=== PATIENT | female | born 1980 | race Two or more races ===

== ENCOUNTER 2022-05-25 21:22 | Emergency (ER) | payer MEDICAID, SELFPAY ==
[2022-05-25 21:23] VITALS: BP 120/71; BP 132/86; PULSE 100; PULSE 85; RESP 18; TEMP 36.4; O2SAT 100; BMI 29.2
[2022-05-25 22:30] LABS: MANUAL DIFF FLAG NO
[2022-05-25 22:33] LABS: Appearance Urine Cloudy; Color Urine Dark Yellow; Glucose Urine UA Negative (Negative); Leukocyte Esterase Urine Negative (Negative); Nitrite Urine Negative (Negative); PH 8.5 (5.0-9.0); Specific Gravity - Urine >= 1.030 (1.005-1.025); UMIC TRIGGER UACC YES; Urine Blood Negative (Negative); Urine Ketones Trace mg/dL (Negative); Urine Protein 30 (1+) mg/dL (Neg-Trace)
[2022-05-25 22:35] LABS: Bacteria Urine 3+ (None Seen); Hyaline Casts Urine 0-2 /LPF (0-2); WBC Urine 0-5 /HPF (0-5)
[2022-05-25 22:36] LABS: Basophils Absolute Auto 0.1 X10*3/uL (0.0-0.2); Basophils Percent Auto 0.7 % (0-2); Eosinophils Absolute Auto 0.2 X10*3/uL (0.0-0.4); Eosinophils Percent Auto 1.5 % (0-4); Hematocrit 35.1 % (37.0-47.0); Hemoglobin 11.4 g/dl (12.0-16.0); Imm Gran Abs Auto 0.04 X10*3/uL (0.00-0.03); Imm Gran Pct Auto 0.4 % (0.0-0.4); Lymphocytes Absolute Auto 2.7 X10*3/uL (1.2-4.9); Lymphocytes Percent Auto 25.7 % (20-40); Mean Corpuscular HGB Conc 32.5 g/dl (31.0-35.0); Mean Corpuscular Hemoglobin 28.9 pg (27.0-33.0); Mean Corpuscular Volume 89.1 fL (80.0-98.0); Mean Platelet Volume 11.5 fL (9.4-12.3); Monocytes Absolute Auto 0.7 X10*3/uL (0.1-1.2); Neutrophils Absolute Auto 6.8 x10*3/uL (2.0-8.3); Neutrophils Percent Auto 64.7 % (45-73); Platelet Count 283 X10*3/uL (160-400); Red Blood Count 3.94 X10*6/uL (4.20-5.50); Red Cell Distribution Width 14.8 % (11.0-16.0); White Blood Count 10.5 X10*3/uL (4.8-10.8)
[2022-05-25 22:39] VITALS: BP 148/78; PULSE 86; RESP 20; TEMP 36.6; O2SAT 97
[2022-05-25 22:52] LABS: Anion Gap 12 (12-20); Blood Urea Nitrogen 8 mg/dL (9-16); Carbon Dioxide 27 mmol/L (22-29); Chloride 105 mmol/L (96-108); Creatinine Clr Calc Pharmacy 85.3; Estimated Glomerular Filt Rate > 60; Glucose Random 56 mg/dL (60-115); Potassium 3.8 mmol/L (3.3-5.1); Sodium 140 mmol/L (135-145)
--- NOTE | 2022-05-25 23:31 | ED_ITS ---
HPI - General Adult General Chief complaint: General Medical Stated complaint: Back Pain Time Seen by Provider: 05/25/22 22:50 Source: patient Mode of arrival: ambulatory Limitations: no limitations History of Present Illness HPI narrative: 42-year-old female status post lumbar spine surgery for herniated disc done in [place] about 2 months ago, patient flew from [place] to [place] 2 days ago started to have lower back pain radiating down to her right leg, no urinary or stool incontinence, no fever or chills. Patient ran out of her pain medication. Related Data Allergies Allergy/AdvReac Type Severity Reaction Status Date / Time caffeine Allergy Unknown HEADACHE Verified 05/25/22 21:29 [From EXCEDRIN ASPIRIN FREE] WORSENS Review of Systems Review of Systems: All other systems are reviewed and are negative Constitutional: Reports as per HPI and Reports no additional constitutional complaints Eyes: Reports as per HPI and Reports no additional eye complaints Reports system reviewed and no additional complaints, except as documented Cardiovascular: Reports as per HPI and Reports no additional cardiovascular complaints Respiratory: Reports as per HPI and Reports no additional respiratory complaints Gastrointestinal: Reports as per HPI and Reports no additional gastrointestinal complaints Genitourinary: Reports no additional female genitourinary complaints Musculoskeletal: Reports no additional musculoskeletal complaints Skin/Breast: Reports system reviewed and no additional complaints, except as docu Psychiatric: Reports no additional psychiatric complaints Endocrine: Reports no additional endocrine complaints Hematologic/Lymphatic: Reports no additional hematologic/lymphatic complaints Allergic/Immunologic: Reports no additional allergic/immunologic complaints Reports system reviewed and no additional complaints, except as documented and Reports Abnormal speech present [facility] Social History Social History Alcohol intake: never Smoked in Last 30 Days: Yes Use of substances other than those prescribed or required for medical reasons: No Advance Directives: No Advance Directives Information Provided: No Physical Exam ED Vital Signs: Vital Signs - 24 hr 05/25/22 21:23 05/25/22 22:39 Temperature 97.5 F 97.9 F Pulse Rate 85 86 Respiratory Rate 18 20 Blood Pressure 120/71 148/78 H Pulse Oximetry 100 97 Oxygen Delivery Method Room Air Room Air BMI result Body Mass Index 29.2 Vital signs have been reviewed as appeared to be correct. Blood pressure normal. Heart rate normal. Respiration rate normal. Temperature normal. Oxygen saturation normal. Appearance: Alert. Oriented X3. No acute distress. Head: Normal external exam. Normocephalic. Atraumatic. No Zelaya signs noted. No raccoon eyes noted Eyes: PERRLA. EOMI. Conjunctiva and sclera normal. Eyelids normal. ENT: TM's Normal. Pharynx normal. Uvula midline. Moist mucous membranes. No trismus noted. No drooling noted. No muffled voice noted. Neck: Normal inspection. Neck supple. FROM. No adenopathy. Thyroid Normal. No meningeal signs. No neck mass noted. CVS: Normal heart rate and rhythm. Heart sound normal. No murmurs noted. Pulses normal throughout. Respiratory: No respiratory distress. Painless inspiration. Breath sounds normal. No wheezes/rales/rhonchi noted. Chest nontender. No accessory muscle usage noted or decreased air movement noted. Abdomen: Soft and nontender. Bowel sounds normal in all 4 quadrants. No distention noted. No organomegaly noted. No visible injury noted. Back: No CVA tenderness. Full range of motion noted. Skin: Skin warm and dry. Normal skin color. Normal skin turgor. No rashes/ lesions/lacerations noted. Extremities: No lower extremity edema. Extremities exhibit normal range of motion. Extremities nontender. Neuro: Oriented X 3. Cranial nerve exam: II-XII are grossly intact No motor deficit. No sensory deficit. Reflexes normal. Course Course Course Narrative: S/p back pain after having surgery for disc herniation 2 months ago in [place], patient will go back home in 2 days, patient is concern of taking pain medication because her sister is a drug addict. Patient feels much better with Dilaudid and muscle relaxant will discharge and follow up with PCP. Medications Administered Discontinued Medications Generic Name Dose Route Start Last Admin Trade Name Freq PRN Reason Stop Dose Admin Diazepam 2 mg 05/25/22 23:30 05/26/22 00:13 Diazepam 2 Mg Tablet PO 05/25/22 23:31 2 mg ONCE ONE Administration Hydromorphone HCl 1 mg 05/25/22 23:30 05/26/22 00:13 Hydromorphone Hcl 1 Mg/Ml Syringe IVPUSH 05/25/22 23:31 1 mg ONCE ONE Administration Protocol Sodium Chloride 1,000 mls @ 999 mls/hr 05/25/22 23:29 05/26/22 00:05 Ns IV 05/26/22 00:29 999 mls/hr .Q1H1M ONE Administration Medical Decision Making Differential Diagnosis Differential Diagnoses: The differential diagnosis associated with the presentation includes (Postsurgical back pain, lumbar radiculopathy, UTI.) Lab Data [facility] Lab Attestation statement: I reviewed the patient's lab results. 05/25/22 22:21 05/25/22 22:21 Labs: Lab Results 05/25/22 05/25/22 05/25/22 Range/Units 22:20 22:21 22:21 WBC 10.5 (4.8-10.8) X10*3/uL RBC 3.94 L (4.20-5.50) X10*6/uL Hgb 11.4 L (12.0-16.0) g/dl Hct 35.1 L (37.0-47.0) % MCV 89.1 (80.0-98.0) fL MCH 28.9 (27.0-33.0) pg MCHC 32.5 (31.0-35.0) g/dl RDW 14.8 (11.0-16.0) % Plt Count 283 (160-400) X10*3/uL MPV 11.5 (9.4-12.3) fL Immature Gran % (Auto) 0.4 (0.0-0.4) % Neut % (Auto) 64.7 (45-73) % Lymph % (Auto) 25.7 (20-40) % [place] % (Auto) 7.0 (2-11) % Eos % (Auto) 1.5 (0-4) % Baso % (Auto) 0.7 (0-2) % Lymph # (Auto) 2.7 (1.2-4.9) X10*3/uL [place] # (Auto) 0.7 (0.1-1.2) X10*3/uL Eos # (Auto) 0.2 (0.0-0.4) X10*3/uL Baso # (Auto) 0.1 (0.0-0.2) X10*3/uL Abs Immat Gran (auto) 0.04 H (0.00-0.03) X10*3/uL Absolute Neuts (auto) 6.8 (2.0-8.3) x10*3/uL Absolute Nucleated RBC 0.000 (0.0-0.012) X10*3/uL Nucleated RBC % (auto) 0.0 (0.0-0.2) /100WBC Sodium 140 (135-145) mmol/L Potassium 3.8 (3.3-5.1) mmol/L Chloride 105 (96-108) mmol/L Carbon Dioxide 27 (22-29) mmol/L Anion Gap 12 (12-20) BUN 8 L (9-16) mg/dL Creatinine 0.81 (0.5-1.4) mg/dL Estim Creat Clear Calc 85.3 Estimated GFR > 60 Random Glucose 56 L* (60-115) mg/dL Calcium 9.0 (8.4-10.2) mg/dL Urine Color Dark Yellow Urine Appearance Cloudy Urine pH 8.5 (5.0-9.0) Ur Specific [place] >= 1.030 H (1.005-1.025) Urine Protein 30 (1+) H (Neg-Trace) mg/dL Urine Glucose (UA) Negative (Negative) mg/dL Urine Ketones Trace (Negative) mg/dL Urine Blood Negative (Negative) Urine Nitrite Negative (Negative) Ur Leukocyte Esterase Negative (Negative) Urine RBC 3-5 H (0-2) /HPF Urine WBC 0-5 (0-5) /HPF Ur Squamous Epith Cells 11-20 (0-2) /HPF Urine Bacteria 3+ (None Seen) Hyaline Casts 0-2 (0-2) /LPF Discharge Plan Discharge Clinical Impression: Back pain Patient Disposition: Home, Self-Care Instructions: Acute Low Back Pain (ED) Additional Instructions: Avoid strenuous exercising, no bending, no heavy lifting.
[2022-05-26] MEDS: 0.9 % Sodium Chloride 1,000 ML 999 ML IV (00:05)
[2022-05-26] MEDS: HYDROmorphone HCl 1 MG/ML SYRINGE IVPUSH (00:13)
[2022-05-26] MEDS: diazePAM 2 MG TABLET PO (00:13)
== END 2022-05-26 02:36 | disposition home or self-care (01) ==
PROVIDERS: Emergency Provider Emergency Medicine
DX: M54.50 Low back pain, unspecified (principal)
CPT/HCPCS: 36415; 80048; 81001; 85025; 96361; 96374; 99284; J1170

== ENCOUNTER 2022-05-27 14:24 | Emergency (ER) | payer MEDICAID, SELFPAY ==
--- NOTE | ~2022-05-27 | XR_ITS ---
EXAMINATION: XR LUMBOSACRAL SPINE CLINICAL INFORMATION: Pain after surgery. COMPARISON: None TECHNIQUE: Three views of the lumbosacral spine. FINDINGS: No fracture. No subluxation. Normal alignment of vertebrae. Significant disc height narrowing at L4-L5 with small vertebral endplate spurs of the vertebrae. Moderate facet joint arthrosis at this disc level and L5-S1. No spondylolysis. Sacroiliac joints are normal. XR/XR lumbar spine 2-3V IMPRESSION: 1. No acute abnormality. 2. Degenerative spondylosis of lower lumbar spine.
--- NOTE | 2022-05-27 14:30 | ED_ITS ---
HPI - Back Pain/Injury General Chief Complaint: Nausea/Vomiting/Diarrhea <RUPERT Donald - Last Filed: 05/27/22 14:41> Stated Complaint: LOW BACK PAIN PER EMS <RUPERT Donald - Last Filed: 05/27/22 14:41> Time Seen by Provider: 05/27/22 16:21 <RUPERT Donald - Last Filed: 05/27/22 14:41> Source: patient <Ilia Ceballos MD - Last Filed: 05/27/22 19:14> Mode of arrival: ambulatory <Ilia Ceballos MD - Last Filed: 05/27/22 19:14> Limitations: no limitations <Ilia Ceballos MD - Last Filed: 05/27/22 19:14> History of Present Illness HPI Narrative: Patient history of chronic back pain status post laminectomy 2 months in [place] comes here for increased pain fell yesterday patient was seen 2 days ago for pain, pain radiates to the right leg as in the past. No leg weakness no bladder or bowel incontinence no abdominal pain no urinary complaint patient vomited several times because of pain had loose bowels 2 times <Ilia Ceballos MD - Last Filed: 05/27/22 19:14> Related Data Allergies/Adverse Reactions: Allergies Allergy/AdvReac Type Severity Reaction Status Date / Time caffeine Allergy Unknown HEADACHE Verified 05/25/22 21:29 [From EXCEDRIN ASPIRIN FREE] WORSENS <RUPERT Donald - Last Filed: 05/27/22 14:41> Review of Systems Review of Systems: Yes all other systems are reviewed and are negative <Ilia Ceballos MD - Last Filed: 05/27/22 19:14> [facility] Social History Social History: Social History Alcohol intake: never Advance Directives: No Advance Directives Information Provided: No <RUPERT Donald - Last Filed: 05/27/22 14:41> Physical Exam Vital Signs: Vital Signs: Last Vital Signs Temp 97.4 F 05/27/22 14:31 Pulse 82 05/27/22 14:31 Resp 18 05/27/22 14:31 BP 134/83 05/27/22 14:31 Pulse Ox 100 05/27/22 14:31 O2 Del Method 05/27/22 14:31 BMI result Body Mass Index 29.6 <RUPERT Donald - Last Filed: 05/27/22 14:41> Vital Signs: Last Vital Signs Temp 97.4 F 05/27/22 14:31 Pulse 82 05/27/22 14:31 Resp 18 05/27/22 14:31 BP 134/83 05/27/22 14:31 Pulse Ox 100 05/27/22 14:31 O2 Del Method 05/27/22 14:31 BMI result Body Mass Index 29.6 <Ilia Ceballos MD - Last Filed: 05/27/22 19:14> Appearance: Alert. Oriented X3. No acute distress. ENT: Pharynx normal. Oral Mucosa moist Neck: Normal inspection. Neck supple. CVS: Normal heart rate and rhythm. Pulses normal. Respiratory: No respiratory distress. Equal air entry bilateral, Abdomen: Soft and nontender. Bowel sounds are present, no mass palpable, no CVA tenderness Skin: Skin warm and dry. Normal skin color. Normal skin turgor. Extremities: No lower extremity edema. No calf tenderness back: Diffuse lumbar spine tenderness more on the right side SLR positive at 70 degrees on the right leg. No motor weakness Neuro: Oriented X 3. No motor deficit. No sensory deficit.No cerebellar signs , cranial nerves II-XII intact <Ilia Ceballos MD - Last Filed: 05/27/22 19:14> Course Course Course Narrative: RME--42 yo F w/PMHx chronic back pain s/p back surgery 2 mos ago (L4/L5 sciatica surgery in [place]) presenting to ED via EMS c/o nausea, vomiting, diarrhea and back pain x few days, reports fall this AM slipping on water reports fell into wall, hit back and then sat on floor. denies head trauma or LOC. Pt was evaluated in our ED 2 days ago for similar. Also reports urinary frequency & rad iation of pain down RLE with lots of walking today with exacerbated sx. Denies incontinence or retention, fever States left her medications in [place] No appreciable midline tenderness. Right lower lumbar MSK tenderness noted. Patient ambulating with assistance, in wheelchair. Labs, UA, COVID-19/influenza/RSV, IVF and x-ray ordered <RUPERT Donald - Last Filed: 05/27/22 14:41> Medications Administered Discontinued Medications Generic Name Dose Route Start Last Admin Trade Name Alie PRN Reason Stop Dose Admin Cyclobenzaprine HCl 10 mg 05/27/22 16:46 05/27/22 16:56 Cyclobenzaprine Hcl 10 Mg Tablet PO 05/27/22 16:47 10 mg ONCE ONE Administration Dexamethasone Sodium Phosphate 10 mg 05/27/22 16:46 05/27/22 16:55 Dexamethasone Sod Phosphate 10 Mg/Ml Vial IVPUSH 05/27/22 16:47 10 mg ONCE ONE Administration Hydromorphone HCl 1 mg 05/27/22 16:46 05/27/22 16:55 Hydromorphone Hcl 1 Mg/Ml Syringe IVPUSH 05/27/22 16:47 1 mg ONCE ONE Administration Protocol Hydromorphone HCl 1 mg 05/27/22 18:29 05/27/22 18:37 Hydromorphone Hcl 2 Mg Tablet PO 05/27/22 18:30 1 mg ONCE ONE Administration Sodium Chloride 1,000 mls @ 999 mls/hr 05/27/22 14:45 05/27/22 16:59 Ns IV 05/27/22 15:45 Infused .Q1H1M HERNAN Infusion Ketorolac Tromethamine 30 mg 05/27/22 17:52 05/27/22 18:04 Ketorolac Tromethamine 30 Mg/Ml Vial IVPUSH 05/27/22 17:53 30 mg ONCE ONE Administration Lorazepam 1 mg 05/27/22 17:52 05/27/22 17:59 Lorazepam 2 Mg/Ml Vial IVPUSH 05/27/22 17:53 1 mg STAT STA Administration Ondansetron HCl 4 mg 05/27/22 16:47 05/27/22 16:55 Ondansetron Hcl 4 Mg/2 Ml Vial IVPUSH 05/27/22 16:48 4 mg ONCE ONE Administration <RUPERT Donald - Last Filed: 05/27/22 14:41> Medications Administered Discontinued Medications Generic Name Dose Route Start Last Admin Trade Name Alie PRN Reason Stop Dose Admin Cyclobenzaprine HCl 10 mg 05/27/22 16:46 05/27/22 16:56 Cyclobenzaprine Hcl 10 Mg Tablet PO 05/27/22 16:47 10 mg ONCE ONE Administration Dexamethasone Sodium Phosphate 10 mg 05/27/22 16:46 05/27/22 16:55 Dexamethasone Sod Phosphate 10 Mg/Ml Vial IVPUSH 05/27/22 16:47 10 mg ONCE ONE Administration Hydromorphone HCl 1 mg 05/27/22 16:46 05/27/22 16:55 Hydromorphone Hcl 1 Mg/Ml Syringe IVPUSH 05/27/22 16:47 1 mg ONCE ONE Administration Protocol Hydromorphone HCl 1 mg 05/27/22 18:29 05/27/22 18:37 Hydromorphone Hcl 2 Mg Tablet PO 05/27/22 18:30 1 mg ONCE ONE Administration Sodium Chloride 1,000 mls @ 999 mls/hr 05/27/22 14:45 05/27/22 16:59 Ns IV 05/27/22 15:45 Infused .Q1H1M HERNAN Infusion Ketorolac Tromethamine 30 mg 05/27/22 17:52 05/27/22 18:04 Ketorolac Tromethamine 30 Mg/Ml Vial IVPUSH 05/27/22 17:53 30 mg ONCE ONE Administration Lorazepam 1 mg 05/27/22 17:52 05/27/22 17:59 Lorazepam 2 Mg/Ml Vial IVPUSH 05/27/22 17:53 1 mg STAT STA Administration Ondansetron HCl 4 mg 05/27/22 16:47 05/27/22 16:55 Ondansetron Hcl 4 Mg/2 Ml Vial IVPUSH 05/27/22 16:48 4 mg ONCE ONE Administration <Ilia Ceballos MD - Last Filed: 05/27/22 19:14> Medical Decision Making Medical Decision Making MDM Narrative: Patient felt better after pain medications able to ambulate to the [facility] patient has a follow-up plan with surgeon tomorrow, discharge patient home x-ray negative for any acute <Ilia Ceballos MD - Last Filed: 05/27/22 19:14> Lab Data MDM Lab Attestation statement: I reviewed the patient's lab results. <Ilia Ceballos MD - Last Filed: 05/27/22 19:14> Result Diagrams: 05/27/22 14:43 05/27/22 14:43 <RUPERT Donald - Last Filed: 05/27/22 14:41> Labs: Lab Results 05/27/22 05/27/22 05/27/22 Range/Units 14:43 14:43 14:50 WBC 9.1 (4.8-10.8) X10*3/uL RBC 3.88 L (4.20-5.50) X10*6/uL Hgb 11.1 L (12.0-16.0) g/dl Hct 34.0 L (37.0-47.0) % MCV 87.6 (80.0-98.0) fL MCH 28.6 (27.0-33.0) pg MCHC 32.6 (31.0-35.0) g/dl RDW 15.2 (11.0-16.0) % Plt Count 238 (160-400) X10*3/uL MPV 11.5 (9.4-12.3) fL Immature Gran % (Auto) 0.2 (0.0-0.4) % Neut % (Auto) 69.2 (45-73) % Lymph % (Auto) 23.4 (20-40) % [place] % (Auto) 5.7 (2-11) % Eos % (Auto) 1.1 (0-4) % Baso % (Auto) 0.4 (0-2) % Lymph # (Auto) 2.1 (1.2-4.9) X10*3/uL [place] # (Auto) 0.5 (0.1-1.2) X10*3/uL Eos # (Auto) 0.1 (0.0-0.4) X10*3/uL Baso # (Auto) 0.0 (0.0-0.2) X10*3/uL Abs Immat Gran (auto) 0.02 (0.00-0.03) X10*3/uL Absolute Neuts (auto) 6.3 (2.0-8.3) x10*3/uL Absolute Nucleated RBC 0.000 (0.0-0.012) X10*3/uL Nucleated RBC % (auto) 0.0 (0.0-0.2) /100WBC Sodium 139 (135-145) mmol/L Potassium 3.9 (3.3-5.1) mmol/L Chloride 106 (96-108) mmol/L Carbon Dioxide 26 (22-29) mmol/L Anion Gap 11 L (12-20) BUN 5 L (9-16) mg/dL Creatinine 0.73 (0.5-1.4) mg/dL Estim Creat Clear Calc 95.1 Estimated GFR > 60 Random Glucose 86 (60-115) mg/dL Calcium 9.3 (8.4-10.2) mg/dL Magnesium 1.9 (1.6-2.6) mg/dL Total Bilirubin 0.7 (0.0-1.0) mg/dL Direct Bilirubin 0.2 (0.0-0.5) mg/dL AST 14 (5-31) U/L ALT 10 (0-31) U/L Alkaline Phosphatase 109 (39-117) U/L Total Protein 7.3 (6.5-8.0) g/dL Albumin 4.1 (3.5-5.0) g/dL Lipase 25 (8-78) U/L Urine Color Yellow Urine Appearance Clear Urine pH 7.5 (5.0-9.0) Ur Specific [place] <= 1.005 (1.005-1.025) Urine Protein Negative (Neg-Trace) mg/dL Urine Glucose (UA) Negative (Negative) mg/dL Urine Ketones Negative (Negative) mg/dL Urine Blood Negative (Negative) Urine Nitrite Negative (Negative) Ur Leukocyte Esterase Negative (Negative) Influenza Type A (PCR) (Negative) Influenza Type B (PCR) (Negative) RSV RNA Qual (PCR) (Negative) SARS-CoV-2 RNA (RT-PCR) (Negative) 05/27/22 Range/Units 15:56 WBC (4.8-10.8) X10*3/uL RBC (4.20-5.50) X10*6/uL Hgb (12.0-16.0) g/dl Hct (37.0-47.0) % MCV (80.0-98.0) fL MCH (27.0-33.0) pg MCHC (31.0-35.0) g/dl RDW (11.0-16.0) % Plt Count (160-400) X10*3/uL MPV (9.4-12.3) fL Immature Gran % (Auto) (0.0-0.4) % Neut % (Auto) (45-73) % Lymph % (Auto) (20-40) % [place] % (Auto) (2-11) % Eos % (Auto) (0-4) % Baso % (Auto) (0-2) % Lymph # (Auto) (1.2-4.9) X10*3/uL [place] # (Auto) (0.1-1.2) X10*3/uL Eos # (Auto) (0.0-0.4) X10*3/uL Baso # (Auto) (0.0-0.2) X10*3/uL Abs Immat Gran (auto) (0.00-0.03) X10*3/uL Absolute Neuts (auto) (2.0-8.3) x10*3/uL Absolute Nucleated RBC (0.0-0.012) X10*3/uL Nucleated RBC % (auto) (0.0-0.2) /100WBC Sodium (135-145) mmol/L Potassium (3.3-5.1) mmol/L Chloride (96-108) mmol/L Carbon Dioxide (22-29) mmol/L Anion Gap (12-20) BUN (9-16) mg/dL Creatinine (0.5-1.4) mg/dL Estim Creat Clear Calc Estimated GFR Random Glucose (60-115) mg/dL Calcium (8.4-10.2) mg/dL Magnesium (1.6-2.6) mg/dL Total Bilirubin (0.0-1.0) mg/dL Direct Bilirubin (0.0-0.5) mg/dL AST (5-31) U/L ALT (0-31) U/L Alkaline Phosphatase (39-117) U/L Total Protein (6.5-8.0) g/dL Albumin (3.5-5.0) g/dL Lipase (8-78) U/L Urine Color Urine Appearance Urine pH (5.0-9.0) Ur Specific [place] (1.005-1.025) Urine Protein (Neg-Trace) mg/dL Urine Glucose (UA) (Negative) mg/dL Urine Ketones (Negative) mg/dL Urine Blood (Negative) Urine Nitrite (Negative) Ur Leukocyte Esterase (Negative) Influenza Type A (PCR) NEGATIVE (Negative) Influenza Type B (PCR) NEGATIVE (Negative) RSV RNA Qual (PCR) NEGATIVE (Negative) SARS-CoV-2 RNA (RT-PCR) NEGATIVE (Negative) <RUPERT Donald - Last Filed: 05/27/22 14:41> Lab Results 05/27/22 05/27/22 05/27/22 Range/Units 14:43 14:43 14:50 WBC 9.1 (4.8-10.8) X10*3/uL RBC 3.88 L (4.20-5.50) X10*6/uL Hgb 11.1 L (12.0-16.0) g/dl Hct 34.0 L (37.0-47.0) % MCV 87.6 (80.0-98.0) fL MCH 28.6 (27.0-33.0) pg MCHC 32.6 (31.0-35.0) g/dl RDW 15.2 (11.0-16.0) % Plt Count 238 (160-400) X10*3/uL MPV 11.5 (9.4-12.3) fL Immature Gran % (Auto) 0.2 (0.0-0.4) % Neut % (Auto) 69.2 (45-73) % Lymph % (Auto) 23.4 (20-40) % [place] % (Auto) 5.7 (2-11) % Eos % (Auto) 1.1 (0-4) % Baso % (Auto) 0.4 (0-2) % Lymph # (Auto) 2.1 (1.2-4.9) X10*3/uL [place] # (Auto) 0.5 (0.1-1.2) X10*3/uL Eos # (Auto) 0.1 (0.0-0.4) X10*3/uL Baso # (Auto) 0.0 (0.0-0.2) X10*3/uL Abs Immat Gran (auto) 0.02 (0.00-0.03) X10*3/uL Absolute Neuts (auto) 6.3 (2.0-8.3) x10*3/uL Absolute Nucleated RBC 0.000 (0.0-0.012) X10*3/uL Nucleated RBC % (auto) 0.0 (0.0-0.2) /100WBC Sodium 139 (135-145) mmol/L Potassium 3.9 (3.3-5.1) mmol/L Chloride 106 (96-108) mmol/L Carbon Dioxide 26 (22-29) mmol/L Anion Gap 11 L (12-20) BUN 5 L (9-16) mg/dL Creatinine 0.73 (0.5-1.4) mg/dL Estim Creat Clear Calc 95.1 Estimated GFR > 60 Random Glucose 86 (60-115) mg/dL Calcium 9.3 (8.4-10.2) mg/dL Magnesium 1.9 (1.6-2.6) mg/dL Total Bilirubin 0.7 (0.0-1.0) mg/dL Direct Bilirubin 0.2 (0.0-0.5) mg/dL AST 14 (5-31) U/L ALT 10 (0-31) U/L Alkaline Phosphatase 109 (39-117) U/L Total Protein 7.3 (6.5-8.0) g/dL Albumin 4.1 (3.5-5.0) g/dL Lipase 25 (8-78) U/L Urine Color Yellow Urine Appearance Clear Urine pH 7.5 (5.0-9.0) Ur Specific [place] <= 1.005 (1.005-1.025) Urine Protein Negative (Neg-Trace) mg/dL Urine Glucose (UA) Negative (Negative) mg/dL Urine Ketones Negative (Negative) mg/dL Urine Blood Negative (Negative) Urine Nitrite Negative (Negative) Ur Leukocyte Esterase Negative (Negative) Influenza Type A (PCR) (Negative) Influenza Type B (PCR) (Negative) RSV RNA Qual (PCR) (Negative) SARS-CoV-2 RNA (RT-PCR) (Negative) 05/27/22 Range/Units 15:56 WBC (4.8-10.8) X10*3/uL RBC (4.20-5.50) X10*6/uL Hgb (12.0-16.0) g/dl Hct (37.0-47.0) % MCV (80.0-98.0) fL MCH (27.0-33.0) pg MCHC (31.0-35.0) g/dl RDW (11.0-16.0) % Plt Count (160-400) X10*3/uL MPV (9.4-12.3) fL Immature Gran % (Auto) (0.0-0.4) % Neut % (Auto) (45-73) % Lymph % (Auto) (20-40) % [place] % (Auto) (2-11) % Eos % (Auto) (0-4) % Baso % (Auto) (0-2) % Lymph # (Auto) (1.2-4.9) X10*3/uL [place] # (Auto) (0.1-1.2) X10*3/uL Eos # (Auto) (0.0-0.4) X10*3/uL Baso # (Auto) (0.0-0.2) X10*3/uL Abs Immat Gran (auto) (0.00-0.03) X10*3/uL Absolute Neuts (auto) (2.0-8.3) x10*3/uL Absolute Nucleated RBC (0.0-0.012) X10*3/uL Nucleated RBC % (auto) (0.0-0.2) /100WBC Sodium (135-145) mmol/L Potassium (3.3-5.1) mmol/L Chloride (96-108) mmol/L Carbon Dioxide (22-29) mmol/L Anion Gap (12-20) BUN (9-16) mg/dL Creatinine (0.5-1.4) mg/dL Estim Creat Clear Calc Estimated GFR Random Glucose (60-115) mg/dL Calcium (8.4-10.2) mg/dL Magnesium (1.6-2.6) mg/dL Total Bilirubin (0.0-1.0) mg/dL Direct Bilirubin (0.0-0.5) mg/dL AST (5-31) U/L ALT (0-31) U/L Alkaline Phosphatase (39-117) U/L Total Protein (6.5-8.0) g/dL Albumin (3.5-5.0) g/dL Lipase (8-78) U/L Urine Color Urine Appearance Urine pH (5.0-9.0) Ur Specific [place] (1.005-1.025) Urine Protein (Neg-Trace) mg/dL Urine Glucose (UA) (Negative) mg/dL Urine Ketones (Negative) mg/dL Urine Blood (Negative) Urine Nitrite (Negative) Ur Leukocyte Esterase (Negative) Influenza Type A (PCR) NEGATIVE (Negative) Influenza Type B (PCR) NEGATIVE (Negative) RSV RNA Qual (PCR) NEGATIVE (Negative) SARS-CoV-2 RNA (RT-PCR) NEGATIVE (Negative) <Ilia Ceballos MD - Last Filed: 05/27/22 19:14> Discharge Plan Discharge Clinical Impression: Low back pain <RUPERT Donald - Last Filed: 05/27/22 14:41> Patient Disposition: Home, Self-Care <RUPERT Donald - Last Filed: 05/27/22 14:41> Instructions: Acute Low Back Pain (ED) <RUPERT Donald - Last Filed: 05/27/22 14:41> Additional Instructions: Continue your medications as prescribed by your PCP for pain <RUPERT Donald - Last Filed: 05/27/22 14:41> Interventions: ED Discharge Assessment Last Done: 05/27/22 18:44 <RUPERT Donald - Last Filed: 05/27/22 14:41> Discharge Date/Time: 05/27/22 18:45 <RUPERT Donald - Last Filed: 05/27/22 14:41>
[2022-05-27 14:31] VITALS: BP 134/83; PULSE 82; RESP 18; TEMP 36.3; O2SAT 100; BMI 29.6
[2022-05-27 14:49] LABS: MANUAL DIFF FLAG NO
[2022-05-27 14:50] LABS: Basophils Percent Auto 0.4 % (0-2); Eosinophils Absolute Auto 0.1 X10*3/uL (0.0-0.4); Eosinophils Percent Auto 1.1 % (0-4); Hemoglobin 11.1 g/dl (12.0-16.0); Imm Gran Abs Auto 0.02 X10*3/uL (0.00-0.03); Imm Gran Pct Auto 0.2 % (0.0-0.4); Lymphocytes Absolute Auto 2.1 X10*3/uL (1.2-4.9); Lymphocytes Percent Auto 23.4 % (20-40); Mean Corpuscular HGB Conc 32.6 g/dl (31.0-35.0); Mean Corpuscular Hemoglobin 28.6 pg (27.0-33.0); Mean Corpuscular Volume 87.6 fL (80.0-98.0); Mean Platelet Volume 11.5 fL (9.4-12.3); Monocytes Absolute Auto 0.5 X10*3/uL (0.1-1.2); Monocytes Percent Auto 5.7 % (2-11); Neutrophils Absolute Auto 6.3 x10*3/uL (2.0-8.3); Neutrophils Percent Auto 69.2 % (45-73); Platelet Count 238 X10*3/uL (160-400); Red Blood Count 3.88 X10*6/uL (4.20-5.50); Red Cell Distribution Width 15.2 % (11.0-16.0); White Blood Count 9.1 X10*3/uL (4.8-10.8)
[2022-05-27 14:59] LABS: Appearance Urine Clear; Color Urine Yellow; Glucose Urine UA Negative (Negative); Leukocyte Esterase Urine Negative (Negative); Nitrite Urine Negative (Negative); PH 7.5 (5.0-9.0); Specific Gravity - Urine <= 1.005 (1.005-1.025); Urine Blood Negative (Negative); Urine Ketones Negative (Negative); Urine Protein Negative (Neg-Trace)
[2022-05-27 15:09] LABS: Alanine Aminotransferase 10 U/L (0-31); Albumin Level 4.1 g/dL (3.5-5.0); Alkaline Phosphatase 109 U/L (39-117); Anion Gap 11 (12-20); Aspartate Amino Transferase 14 U/L (5-31); Bilirubin Direct 0.2 mg/dL (0.0-0.5); Bilirubin Total 0.7 mg/dL (0.0-1.0); Blood Urea Nitrogen 5 mg/dL (9-16); Calcium 9.3 mg/dL (8.4-10.2); Carbon Dioxide 26 mmol/L (22-29); Chloride 106 mmol/L (96-108); Creatinine Clr Calc Pharmacy 95.1; Estimated Glomerular Filt Rate > 60; Glucose Random 86 mg/dL (60-115); Lipase 25 U/L (8-78); Magnesium 1.9 mg/dL (1.6-2.6); Potassium 3.9 mmol/L (3.3-5.1); Sodium 139 mmol/L (135-145); Total Protein 7.3 g/dL (6.5-8.0)
[2022-05-27] MEDS: 0.9 % Sodium Chloride 1,000 ML 999 ML IV (15:58)
[2022-05-27 16:45] LABS: Influenza A PCR NEGATIVE (Negative); Influenza B PCR NEGATIVE (Negative); Resp Syncy Virus RNA Qual PCR NEGATIVE (Negative); SARS COV2 PCR INHOUSE NEGATIVE (Negative)
[2022-05-27] MEDS: ondansetron HCL 4 MG/2 ML VIAL IVPUSH (16:55)
[2022-05-27] MEDS: HYDROmorphone HCl 1 MG/ML SYRINGE IVPUSH (16:55)
[2022-05-27] MEDS: dexAMETHasone sod phosphate 10 MG/ML VIAL IVPUSH (16:55)
[2022-05-27] MEDS: Cyclobenzaprine HCl 10 MG TABLET PO (16:56)
--- NOTE | 2022-05-27 17:01 | MHC.EDTECH ---
Placed bedpan for patient. Gave patient two warm blankets.
[2022-05-27] MEDS: LORazepam 2 MG/ML VIAL 1 MG IVPUSH (17:59)
[2022-05-27] MEDS: Ketorolac Tromethamine 30 MG/ML VIAL IVPUSH (18:04)
[2022-05-27] MEDS: HYDROmorphone HCl 2 MG TABLET 1 MG PO (18:37)
== END 2022-05-27 18:45 | disposition home or self-care (01) ==
PROVIDERS: Physician Assistant; Emergency Provider Internal Medicine
DX: M54.50 Low back pain, unspecified (principal); Z20.822 Contact with and (suspected) exposure to COVID-19; Z20.828 Contact with and (suspected) exposure to other viral communicable diseases
CPT/HCPCS: 0241U; 36415; 72100; 80048; 80076; 81003; 83690; 83735; 85025; 96361; 96374; 96375; 99284; J1100; J1170; J1885; J2060; J2405

== ENCOUNTER 2022-06-13 00:55 | Emergency (ER) | payer MEDICAID, SELFPAY ==
[2022-06-13 01:02] VITALS: BP 147/77; PULSE 95; RESP 20; TEMP 36.1; O2SAT 95; BMI 26.5
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
[2022-06-13 02:00] VITALS: BP 133/79; PULSE 84; RESP 16; TEMP 37.1; O2SAT 98
[2022-06-13] MEDS: LORazepam 1 MG TABLET 2 MG PO (02:49)
[2022-06-13] MEDS: Ondansetron ODT 4 MG TAB.RAPDIS TRANSLINGU (02:49)
[2022-06-13] MEDS: Loperamide HCl 2 MG CAPSULE 4 MG PO (02:49)
[2022-06-13] MEDS: Ketorolac Tromethamine 60 MG/2 ML VIAL IM (02:50)
--- NOTE | 2022-06-13 02:56 | PC.NURSE ---
This Rn took over care at 2:56am. Pt is resting at this time. no sign of distress will continue to monitor.
--- NOTE | 2022-06-13 02:56 | PC.NURSE ---
pt resting on stretcher, tearful stating that she does not want to live in pain like this . Administered medication per MAR. Pt states the toradol won't do anything This RN spoke with MD who requested to continue with toradol
--- NOTE | 2022-06-13 03:03 | PC.NURSE ---
Notified provider of pain discomfort. No new orders at this time.
[2022-06-13 03:37] VITALS: BP 135/77; PULSE 72; RESP 16; TEMP 36.9; O2SAT 97
--- NOTE | 2022-06-13 04:15 | PC.NURSE ---
Reviewed discharge instructions with pt . pt verbalized understanding. Pt upset with plan of care, Reviewed medications provider is aware.
== END 2022-06-13 04:17 | disposition home or self-care (01) ==
PROVIDERS: Emergency Provider Internal Medicine
DX: M54.50 Low back pain, unspecified (principal)
CPT/HCPCS: 96372; 99284; J1885

== ENCOUNTER 2022-06-23 00:28 | Emergency (ER) | payer MEDICAID, SELFPAY ==
[2022-06-23 00:35] VITALS: BP 126/64; BP 129/89; PULSE 80; RESP 18; TEMP 36.6; O2SAT 100; O2SAT 98; BMI 32.5
--- NOTE | 2022-06-23 01:28 | ED_ITS ---
HPI - Back Pain/Injury General Chief Complaint: Back Pain/Injury Stated Complaint: back pain Time Seen by Provider: 06/23/22 01:08 Source: patient Mode of arrival: EMS History of Present Illness HPI Narrative: 42-year-old female who is visiting from [place] presents with lower back pain that radiates across her right gluteus and down the posterior aspect of her right leg. This is not been associated with any numbness or tingling or wea kness. She has no bowel or bladder dysfunction, no fevers or chills. Related Data Previous Rx's Medication Instructions Recorded cyclobenzaprine 10 mg tablet 10 mg PO Q8H #20 tabs 06/13/22 ketorolac 10 mg tablet 10 mg PO Q8H PRN pain #14 tabs 06/13/22 cyclobenzaprine 10 mg tablet 10 mg PO BEDTIME PRN muscle spasm 06/23/22 #5 tabs ketorolac 10 mg tablet 10 mg PO Q6H PRN pain 5 days #20 06/23/22 tabs Allergies Allergy/AdvReac Type Severity Reaction Status Date / Time No Known Allergies Allergy Verified 06/23/22 00:42 Review of Systems Review of Systems: Pertinent positives and negatives as stated in HPI [facility] Past Medical History Source: nursing notes reviewed Social History Social History Alcohol intake: never Advance Directives: No Physical Exam Vital Signs: Vital Signs: Last Vital Signs Temp 97.9 F 06/23/22 00:35 Pulse 80 06/23/22 00:35 Resp 18 06/23/22 00:35 BP 126/64 06/23/22 00:35 Pulse Ox 98 06/23/22 00:35 O2 Del Method 06/23/22 00:35 BMI result Body Mass Index 32.5 VITAL SIGNS: Reviewed. GENERAL: Well developed, well nourished, in no acute distress. HEAD: Normocephalic/atraumatic EYES: PERRLA, EOMI LUNGS: Normal breath sounds. No adventitious sounds or accessory muscle use. SpO2<98> CARDIOVASCULAR: Regular rate and rhythm without noted murmurs ABDOMEN: Soft, non-tender, non-distended with bowel sounds. MUSCULOSKELETAL: No tenderness, deformities, or effusions noted on gross inspection. EXTREMITIES: No cyanosis, clubbing or edema. SKIN: Inspection of the skin reveals no rashes NEUROLOGIC: Alert and oriented x 4. Strength and sensation to light touch were grossly intact x 4, cranial nerves 2-12 were intact, DTRs are intact. Medications Administered Discontinued Medications Generic Name Dose Route Start Last Admin Trade Name Alie PRN Reason Stop Dose Admin Acetaminophen 975 mg 06/23/22 01:28 06/23/22 01:47 Acetaminophen 325 Mg Tablet PO 06/23/22 01:29 975 mg ONCE ONE Administration Cyclobenzaprine HCl 10 mg 06/23/22 01:28 06/23/22 01:48 Cyclobenzaprine Hcl 10 Mg Tablet PO 06/23/22 01:29 10 mg ONCE ONE Administration Ketorolac Tromethamine 15 mg 06/23/22 01:28 06/23/22 01:47 Ketorolac Tromethamine 15 Mg/Ml Vial IM 06/23/22 01:29 15 mg ONCE ONE Administration Lidocaine 1 patch 06/23/22 01:28 06/23/22 01:46 Lidocaine 4 % Patch Adh..Patch TRANSDERMA 06/23/22 01:29 1 patch ONCE ONE Administration Protocol Medical Decision Making Medical Decision Making MDM Narrative: 42-year-old female without evidence of cauda equina and although she did endorse a back surgery 2 months ago she does not have any noted erythema or induration at the site and there are no motor deficits. Will provide patient with combination analgesics, muscle relaxant and lidocaine patch and obtain a urine test. Patient also seems somewhat overwhelmed with handling current family issues and has also not been sleeping on an appropriate surface since she has been up visiting her family. On re-evaluation patient reports minimal improvement in her discomfort and is requesting Dilaudid. She was informed that we would not be able to provide that to her, I did give her 1 5 mg oxycodone prior to discharge and have given her a good pain regimen that she can follow until she returns to [place]. She is otherwise hemodynamically stable. Differential Diagnosis Differential Diagnoses: The differential diagnosis associated with the presentation includes Please see the discussion above Lab Data Labs: Lab Results 06/23/22 06/23/22 Range/Units 01:46 01:46 Urine Color Yellow Urine Appearance Clear Urine pH 6.5 (5.0-9.0) Ur Specific [place] <= 1.005 (1.005-1.025) Urine Protein Negative (Neg-Trace) mg/dL Urine Glucose (UA) Negative (Negative) mg/dL Urine Ketones Negative (Negative) mg/dL Urine Blood Negative (Negative) Urine Nitrite Negative (Negative) Ur Leukocyte Esterase Negative (Negative) Urine Test NEGATIVE (NEGATIVE) Discharge Plan Discharge Clinical Impression: Sciatica Patient Disposition: Home, Self-Care Instructions: Sciatica (ED), Lower Back Exercises (ED) Additional Instructions: 1. Tylenol 1000 mg, orally, every 6 hours as needed for pain control. Do not exceed 4000 mg within 24 hours. 2. Lidocaine patch, apply to area of maximal tenderness as directed on the outside packaging. 3. Attempt to find better sleeping in additions to reduce the amount of discomfort that you are experiencing. Return to the ER for any worsening symptoms. Prescriptions: New cyclobenzaprine 10 mg tablet 10 mg PO BEDTIME PRN (Reason: muscle spasm) Qty: 5 0RF ketorolac 10 mg tablet 10 mg PO Q6H PRN (Reason: pain) 5 Days Qty: 20 0RF Rx Instructions: Patient received Toradol in the emergency room. No Action cyclobenzaprine 10 mg tablet 10 mg PO Q8H Qty: 20 0RF ketorolac 10 mg tablet 10 mg PO Q8H PRN (Reason: pain) Qty: 14 0RF
[2022-06-23] MEDS: Lidocaine 4 % Patch ADH..PATCH 1 PATCH TRANSDERMA (01:46)
[2022-06-23] MEDS: Ketorolac Tromethamine 15 MG/ML VIAL IM (01:47)
[2022-06-23] MEDS: Acetaminophen 325 MG TABLET 975 MG PO (01:47)
[2022-06-23] MEDS: Cyclobenzaprine HCl 10 MG TABLET PO (01:48)
[2022-06-23 02:03] LABS: Appearance Urine Clear; Color Urine Yellow; Glucose Urine UA Negative (Negative); Leukocyte Esterase Urine Negative (Negative); Nitrite Urine Negative (Negative); PH 6.5 (5.0-9.0); Specific Gravity - Urine <= 1.005 (1.005-1.025); Urine Blood Negative (Negative); Urine Ketones Negative (Negative); Urine Protein Negative (Neg-Trace)
[2022-06-23 02:04] LABS: Urine Pregnancy NEGATIVE (NEGATIVE)
[2022-06-23 02:05] LABS: UPreg QC Valid YES
== END 2022-06-23 02:41 | disposition home or self-care (01) ==
PROVIDERS: Emergency Provider Student in an Organized Health Care Education/Training Program
DX: M54.41 Lumbago with sciatica, right side (principal); Z79.899 Other long term (current) drug therapy
CPT/HCPCS: 81003; 81025; 99283; J1885

== ENCOUNTER 2023-09-02 10:01 | Emergency (ER) | payer MEDICAID, SELFPAY ==
--- NOTE | ~2023-09-02 | CT_ITS ---
EXAMINATION: CT LUMBAR SPINE WITHOUT CONTRAST CLINICAL INFORMATION: Status post lumbar surgery. COMPARISON: Lumbar spine May 27, 2022 TECHNIQUE: Axial images obtained through the lumbar spine. Coronal and sagittal reformatted images are performed at CT scanner This CT examination was performed using dose optimization techniques as appropriate, variously including the following: *Automated exposure control *Adjustment of mA and/or kV according to patient size (this includes techniques or standardized protocols for targeted exams where dose is matched to indication/reason for exam; i.e. extremities or head) *Use of iterative reconstruction technique DLP; 733 mGy-cm FINDINGS: Status post fusion L4-L5. Lumbar vertebrae have normal height and alignment. No fracture or bone destruction. No spondylolysis or spondylolisthesis. No paraspinal soft tissue abnormality. The abdominal aorta and kidneys are unremarkable. Uterus is anteverted. No adnexal abnormality. No acute change of the visualized bowel loops. Lumbar levels: T12-L1: Normal. L1-L2: Normal. L2-L3: Normal. L3-L4: Normal. L4-L5:Status post anterior fusion with disc spacer and screws. Mild facet joint arthrosis. Neural foramina open. No central canal stenosis. L5-S1: Normal. CT/CT lumbar spine wo IV con IMPRESSION: 1. Status post anterior fusion L4-L5. 2. Otherwise normal CT lumbar spine.
[2023-09-02 10:45] VITALS: BP 106/71; PULSE 97; RESP 16; TEMP 36.6; O2SAT 99; BMI 33.6
--- NOTE | 2023-09-02 11:58 | ED_ITS ---
HPI - Back Pain/Injury General Chief Complaint: Back Pain/Injury Stated Complaint: Low Back Pain Surgery 05/10 Time Seen by Provider: 09/02/23 11:58 Source: patient, RN notes reviewed and old records reviewed Mode of arrival: ambulatory Limitations: no limitations History of Present Illness HPI Narrative: 43 year old female presents to the ED today for evaluation of acute on chronic right lower back pain x2 days. Admits to lumbar surgery (L4-L5) in April of 2023 in [place] without complications. She has had numerous follow up assessments post surgery. She states that over the last week she has traveled from [place] to [place] now to [place] for family issues. She began to have pain to her right lower back with radiation down her right leg approximately 2 days ago after sitting for a long period of time on the flight. She states that she left her opioid pain medication in [place] and has not been taking any over the counter pain medications for her pain while traveling over the last week. Admits to associated numbness down the right lower extremity that has been present since before her surgery. Denies difficulty ambulating. Denies new injury or trauma. Denies IV drug use. Denies fever, chills, neck pain, bowel or bladder incontinence or retention, numbness/tingling/weakness in the lower extremities, dysuria, hematuria, saddle anesthesia, bowel/bladder incontinence or retention. Related Data Previous Rx's ?Medication ?Instructions ?Recorded cyclobenzaprine 10 mg tablet 10 mg PO Q8H #20 tabs 06/13/22 ketorolac 10 mg tablet 10 mg PO Q8H PRN pain #14 tabs 06/13/22 cyclobenzaprine 10 mg tablet 10 mg PO BEDTIME PRN muscle spasm 06/23/22 #5 tabs ketorolac 10 mg tablet 10 mg PO Q6H PRN pain 5 days #20 06/23/22 tabs lidocaine 5 % topical patch 1 patch topical DAILY #15 ea 09/02/23 (Lidoderm) naproxen 500 mg tablet 500 mg PO Q8-12H PRN pain (scale 09/02/23 score 4-6) #14 tabs Allergies Allergy/AdvReac Type Severity Reaction Status Date / Time No Known Allergies Allergy Verified 09/02/23 10:47 Review of Systems 2 Review of Systems: Constitutional: No fever, chills, fatigue, night sweats, weight changes ENT/Mouth: No ear pain, hearing loss, nasal congestion, sinus pain, rhinorrhea, sore throat Eyes: No eye pain, swelling, redness, vision changes, discharge Cardio: No chest pain, palpitations, GR, orthopnea, peripheral edema Pulm: No SOB, cough, sputum, wheezing, dyspnea, hemoptysis GI: No nausea, vomiting, hematemesis, abdominal pain, diarrhea, constipation, hematochezia, melena : No irregular bleeding, dysuria, frequency, urgency, hesitancy, hematuria, flank pain, urinary flow changes, urinary incontinence or retention MSK: No neck pain, joint pain, myalgias, +low back pain Skin: No lesions, rashes Neuro: No weakness, numbness, paresthesias, LOC, dizziness, headache Psych: No anxiety/panic, depression, SI/HI, AH/VH All other systems reviewed and are negative. [facility] Past Medical History Attestation statement: The following information was validated with the patient. Source: old records reviewed and nursing notes reviewed Social History Social History Alcohol intake: never Advance Directives: No Advance Directives Information Provided: Yes Physical Exam 2 Vital Signs: Vital Signs: Last Vital Signs Temp 97.9 F 09/02/23 16:44 Pulse 66 09/02/23 16:44 Resp 18 09/02/23 16:44 BP 118/69 09/02/23 16:44 Pulse Ox 100 09/02/23 16:44 O2 Del Method Room Air 09/02/23 16:44 BMI result Body Mass Index 33.6 Vital signs stable, afebrile Const: General: cooperative, healthy appearing, comfortable, no acute distress, alert, awake and Physically active Orientation/consciousness: p atient oriented x3 HEENT: Head: Yes normal to inspection, Yes No palpable skull fracture present, Yes normocephalic and Yes atraumatic Eyes: General: appearance normal, both eyes and all related structures C onjunctivae: conjunctivae normal Sclerae: sclerae normal Pupils: Equal, round and reactive pupils present EOM: EOMs intact bilaterally Neck: Other: + no cervical midline spinous tenderness or step-off deformity. Neck: Yes normal visual inspection, Yes full ROM and Yes no meningeal signs Resp: Effort & Inspection: normal respiratory effort and able to speak in complete sentences Auscultation: clear to auscultation bilaterally Cardio: Rate: regular rate Rhythm: regular rhythm GI: Inspection: Yes normal to inspection Palpation (GI): Soft to palpation and nontender : General: Yes no CVA tenderness Back/Spine/Pelvis: Other: No midline tenderness or step-off deformity. There is tenderness overlying the right paraspinal muscles. Back: no CVA tenderness Skin: General skin exam: no rashes or lesions noted Neuro: Other: Strength 5/5 intact throughout.?No saddle anesthesia.?Sensation intact to light touch.?Neurovascular intact distally.? General: patient oriented x3, gait normal and no meningeal signs Cranial nerves: Yes Equal, round and reactive pupils present Gait exam (Neuro): N ormal gait present Extrem: General: Yes normal to inspection, Yes full ROM and Yes capillary refill normal Course Course Course Narrative: 1445-- CBC without leukocytosis. Chronic stable anemia when compared to priors. Chemistry without acute electrolyte abnormality requiring intervention. Normal kidney and liver function. Urine does not demonstrate infection or blood > no urinary tract infection. Nephrolithiasis unlikely. CT lumbar spine pending. > patient received 4 of morphine. She is requesting more pain medication. I offered Tylenol and lidocaine patch which she is declining at this time. She states the only thing that works for me is Dilaudid . Given stable vital signs and physical exam, I do not feel as though Dilaudid is warranted at this time. She has ambulated with steady gait multiple times to the bathroom. Will await CT read for further pain management. 1518-- Patient threatening to leave if she does not receive Dilaudid. She has been walking in and out of the emergency department to smoke cigarettes. upon asking if she can eat, I advised her not to eat anything until her imaging returns. RN informs me that on entering her room, patient actively eating a burger while stating she is not eating. 1630-- CT lumbar spine shows hardware in place. No acute fracture or subluxation. Discussed work up results with patient. Symptoms consistent with sciatica. Will send lido patches and naproxen to pharmacy. She continues to decline any pain medication that is not dilaudid. I do not feel as though current symptoms/ presentation/ work up warrants this strong of a pain medication. Patient has remained stable throughout ED visit today. Discussed worrisome signs and symptoms and when to return to the ED. All questions answered at this time. Patient is stable for discharge. Medications Administered Discontinued Medications Generic Name Dose Route Start Last Admin Trade Name Alie PRN Reason Stop Dose Admin Acetaminophen 975 mg 09/02/23 14:22 09/02/23 14:44 Acetaminophen 325 Mg Tablet PO 09/02/23 14:23 Not Given ONCE ONE Sodium Chloride 1,000 mls @ 999 mls/hr 09/02/23 12:45 09/02/23 15:11 Ns IV 09/02/23 13:45 Infused .Q1H1M HERNAN Infusion Lidocaine 1 patch 09/02/23 14:22 09/02/23 14:44 Lidocaine 4 % Patch Adh..Patch TRANSDERMA 09/02/23 14:23 Not Given ONCE ONE Protocol Morphine Sulfate 4 mg 09/02/23 12:38 09/02/23 13:12 Morphine Sulfate 4 Mg/Ml Cartridge IVPUSH 09/02/23 12:39 4 mg ONCE ONE Administration Protocol Medical Decision Making Medical Decision Making [facility] Narrative: 43 year old female presents to the ED today for evaluation of acute on chronic right lower back pain x2 days. Vital signs stable. Afebrile. She is nontoxic appearing and in NAD. On exam, there is no midline spinous tenderness or step off deformity. There is tenderness over the right paraspinal muscles. Difficulty extending right hip secondary to pain. sensation intact bilaterally, patellar DTRs intact bilaterally. Differential diagnosis includes MSK sprain/strain, fracture, subluxation, disc herniation, sciatica, nephrolithiasis, UTI. Unlikely cord compression, cauda equina, Guillain-Mcfarlan, epidural abscess. Plan for imaging, labs, and pain control. Differential Diagnosis Differential Diagnoses: The differential diagnosis associated with the presentation includes as above Admission/Observation Not indicated. Lab Data [facility] Lab Attestation statement: I reviewed the patient's lab results. As above 09/02/23 12:54 09/02/23 12:54 Labs: Lab Results 09/02/23 Range/Units 12:54 WBC 10.4 (4.8-10.8) X10*3/uL RBC 3.99 L (4.20-5.50) X10*6/uL Hgb 10.8 L (12.0-16.0) g/dl Hct 33.4 L (37.0-47.0) % MCV 83.7 (80.0-98.0) fL MCH 27.1 (27.0-33.0) pg MCHC 32.3 (31.0-35.0) g/dl RDW 17.6 H (11.0-16.0) % Plt Count 283 (160-400) X10*3/uL MPV 11.1 (9.4-12.3) fL Immature Gran % (Auto) 0.5 H (0.0-0.4) % Neut % (Auto) 74.9 H (45-73) % Lymph % (Auto) 17.4 L (20-40) % Emm[place] % (Auto) 5.7 (2-11) % Eos % (Auto) 1.0 (0-4) % Baso % (Auto) 0.5 (0-2) % Lymph # (Auto) 1.8 (1.2-4.9) X10*3/uL [place] # (Auto) 0.6 (0.1-1.2) X10*3/uL Eos # (Auto) 0.1 (0.0-0.4) X10*3/uL Baso # (Auto) 0.1 (0.0-0.2) X10*3/uL Abs Immat Gran (auto) 0.05 H (0.00-0.03) X10*3/uL Absolute Neuts (auto) 7.8 (2.0-8.3) x10*3/uL Absolute Nucleated RBC 0.000 (0.0-0.012) X10*3/uL Nucleated RBC % (auto) 0.0 (0.0-0.2) /100WBC Sodium 140 (135-145) mmol/L Potassium 4.0 (3.3-5.1) mmol/L Chloride 107 (96-108) mmol/L Carbon Dioxide 27 (22-29) mmol/L Anion Gap 10 L (12-20) BUN 7 L (9-16) mg/dL Creatinine 0.73 (0.5-1.4) mg/dL Estim Creat Clear Calc 104.4 Estimated GFR > 60 Random Glucose 85 (60-115) mg/dL Calcium 9.3 (8.4-10.2) mg/dL Total Bilirubin 0.7 (0.0-1.0) mg/dL AST 15 (5-31) U/L ALT 11 (0-31) U/L Alkaline Phosphatase 99 (39-117) U/L Total Protein 7.5 (6.5-8.0) g/dL Albumin 4.0 (3.5-5.0) g/dL Urine Color Yellow Urine Appearance Clear Urine pH 7.5 (5.0-9.0) Ur Specific [place] 1.010 (1.005-1.025) Urine Protein Negative (Neg-Trace) mg/dL Urine Glucose (UA) Negative (Negative) mg/dL Urine Ketones Negative (Negative) mg/dL Urine Blood Negative (Negative) Urine Nitrite Negative (Negative) Ur Leukocyte Esterase Negative (Negative) Independent Interpretation I performed an independent interpretation of an: CT Scan Interpretation: CT scan does not demonstrate fracture, agree with radiologist's interpretation. Radiology Impression Discussion of test interpretation with radiology: I have reviewed the radiologist's reading. Radiologist Impression: EXAMINATION: CT LUMBAR SPINE WITHOUT CONTRAST CLINICAL INFORMATION: Status post lumbar surgery. COMPARISON: Lumbar spine May 27, 2022 TECHNIQUE: Axial images obtained through the lumbar spine. Coronal and sagittal reformatted images are performed at CT scanner This CT examination was performed using dose optimization techniques as appropriate, variously including the following: *Automated exposure control *Adjustment of mA and/or kV according to patient size (this includes techniques or standardized protocols for targeted exams where dose is matched to indication/reason for exam; i.e. extremities or head) *Use of iterative reconstruction technique DLP; 733 mGy-cm FINDINGS: Status post fusion L4-L5. Lumbar vertebrae have normal height and alignment. No fracture or bone destruction. No spondylolysis or spondylolisthesis. No paraspinal soft tissue abnormality. The abdominal aorta and kidneys are unremarkable. Uterus is anteverted. No adnexal abnormality. No acute change of the visualized bowel loops. Lumbar levels: T12-L1: Normal. L1-L2: Normal. L2-L3: Normal. L3-L4: Normal. L4-L5:Status post anterior fusion with disc spacer and screws. Mild facet joint arthrosis. Neural foramina open. No central canal stenosis. L5-S1: Normal. CT/CT lumbar spine wo IV con IMPRESSION: 1. Status post anterior fusion L4-L5. 2. Otherwise normal CT lumbar spine. External Record Review External record reviewed: Inpatient record Prescription Management I considered prescription management with: Pain Medication Social Determinants Patient?s care significantly limited by Social Determinants of Health including: Other Social Determinant of Health Critical Care Time Critical Care Time Critical Care Time: Yes Total Critical Care Time: 31 Attestation: Critical care time in the amount of 31 minutes has been provided to the patient in terms of direct patient care, frequent reevaluation on IV morphine, review and interpretation of medical data and results, and management of potentially life-threatening conditions. This is all outside of any medical procedures. Discharge Plan Discharge Clinical Impression: Lumbar back pain, Sciatica Patient Disposition: Home, Self-Care Instructions: Chronic Back Pain (DC) Additional Instructions: Your labs are reassuring. Your urine is negative for infection and blood. The CT of your low back does not reveal any surgical complication or new fracture. This is a normal CT of your low back. Naproxen has been sent to your pharmacy for you to take for pain/discomfort. You may also use lidocaine patches as needed for pain/discomfort. Follow up with your PCP and/ or surgeon as you will likely require physical therapy. Return with new or worsening symptoms. In the case of an emergency call 911. Prescriptions: New lidocaine [Lidoderm] 5 % adhesive patch,medicated 1 patch topical DAILY Qty: 15 0RF Rx Instructions: leave on most painful area for up to 12 hrs naproxen 500 mg tablet 500 mg PO Q8-12H PRN (Reason: pain (scale score 4-6)) Qty: 14 0RF No Action cyclobenzaprine 10 mg tablet 10 mg PO Q8H Qty: 20 0RF ketorolac 10 mg tablet 10 mg PO Q8H PRN (Reason: pain) Qty: 14 0RF cyclobenzaprine 10 mg tablet 10 mg PO BEDTIME PRN (Reason: muscle spasm) Qty: 5 0RF ketorolac 10 mg tablet 10 mg PO Q6H PRN (Reason: pain) 5 Days Qty: 20 0RF Rx Instructions: Patient received Toradol in the emergency room. Referrals: [facility] [place] [facility] [place]Provider Group] [facility] [place] [place] [facility] [Provider Group] [facility] [place] [place] [facility] [Provider Group] Interventions: ED Discharge Assessment Last Done: 09/02/23 16:44 Discharge Date/Time: 09/02/23 16:46 Print Language: Kazakh
[2023-09-02 13:00] LABS: MANUAL DIFF FLAG NO
[2023-09-02 13:02] LABS: Appearance Urine Clear; Basophils Absolute Auto 0.1 X10*3/uL (0.0-0.2); Basophils Percent Auto 0.5 % (0-2); Color Urine Yellow; Eosinophils Absolute Auto 0.1 X10*3/uL (0.0-0.4); Glucose Urine UA Negative (Negative); Hematocrit 33.4 % (37.0-47.0); Hemoglobin 10.8 g/dl (12.0-16.0); Imm Gran Abs Auto 0.05 X10*3/uL (0.00-0.03); Imm Gran Pct Auto 0.5 % (0.0-0.4); Leukocyte Esterase Urine Negative (Negative); Lymphocytes Absolute Auto 1.8 X10*3/uL (1.2-4.9); Lymphocytes Percent Auto 17.4 % (20-40); Mean Corpuscular HGB Conc 32.3 g/dl (31.0-35.0); Mean Corpuscular Hemoglobin 27.1 pg (27.0-33.0); Mean Corpuscular Volume 83.7 fL (80.0-98.0); Mean Platelet Volume 11.1 fL (9.4-12.3); Monocytes Absolute Auto 0.6 X10*3/uL (0.1-1.2); Monocytes Percent Auto 5.7 % (2-11); Neutrophils Absolute Auto 7.8 x10*3/uL (2.0-8.3); Neutrophils Percent Auto 74.9 % (45-73); Nitrite Urine Negative (Negative); PH 7.5 (5.0-9.0); Platelet Count 283 X10*3/uL (160-400); Red Blood Count 3.99 X10*6/uL (4.20-5.50); Red Cell Distribution Width 17.6 % (11.0-16.0); Urine Blood Negative (Negative); Urine Ketones Negative (Negative); Urine Protein Negative (Neg-Trace); White Blood Count 10.4 X10*3/uL (4.8-10.8)
[2023-09-02] MEDS: 0.9 % Sodium Chloride 1,000 ML 999 ML IV (13:12)
[2023-09-02] MEDS: Morphine Sulfate 4 MG/ML CARTRIDGE IVPUSH (13:12)
--- NOTE | 2023-09-02 13:13 | PC.NURSE ---
pt a&ox3, iv inserted, labs drawn, urine obtained, ivf started per order, pt medicated per order, pt had ct scan per order, call mckeon within reach, will continue to monitor
[2023-09-02 13:19] LABS: Alanine Aminotransferase 11 U/L (0-31); Alkaline Phosphatase 99 U/L (39-117); Anion Gap 10 (12-20); Aspartate Amino Transferase 15 U/L (5-31); Bilirubin Total 0.7 mg/dL (0.0-1.0); Blood Urea Nitrogen 7 mg/dL (9-16); Calcium 9.3 mg/dL (8.4-10.2); Carbon Dioxide 27 mmol/L (22-29); Chloride 107 mmol/L (96-108); Creatinine Clr Calc Pharmacy 104.4; Estimated Glomerular Filt Rate > 60; Glucose Random 85 mg/dL (60-115); Sodium 140 mmol/L (135-145); Total Protein 7.5 g/dL (6.5-8.0)
[2023-09-02 14:00] VITALS: BP 118/69; PULSE 66; RESP 18; TEMP 36.6; O2SAT 100
--- NOTE | 2023-09-02 14:30 | PC.NURSE ---
Assumed care of patient at this time.
--- NOTE | 2023-09-02 14:43 | PC.NURSE ---
Patient refusing lidocaine patch and tylenol at this time. Provider spoke with patient, plan is to await CT results.
[2023-09-02 16:44] VITALS: BP 118/69; PULSE 66; RESP 18; TEMP 36.6; O2SAT 100
== END 2023-09-02 16:46 | disposition home or self-care (01) ==
PROVIDERS: Physician Assistant Medical; Emergency Provider Emergency Medicine
DX: M54.40 Lumbago with sciatica, unspecified side (principal)
CPT/HCPCS: 36415; 72132; 80053; 81003; 85025; 96361; 96374; 99284; J2270